=== PATIENT | female | born 1975 ===

== ENCOUNTER 2020-08-28 13:35 | Emergency (ER) | payer MEDICAID, SELFPAY ==
[2020-08-28 14:26] VITALS: BP 175/98; PULSE 77; RESP 18; TEMP 36.9; O2SAT 100; BMI 31.8
[2020-08-28] MEDS: Lidocaine HCl 2 % MPF 5 ML VIAL SUBCUT (14:56)
--- NOTE | 2020-08-28 15:21 | ED_ITS ---
HPI - Dental/Oral General Chief complaint: Dental/Oral Stated complaint: facial swelling Time Seen by Provider: 08/28/20 14:31 Source: patient and court interpreter Mode of arrival: ambulatory Limitations: no limitations and language barrier History of Present Illness HPI Narrative: dental pain with swelling x several days. No fevers/chills or difficulty opening the mouth. MD Complaint: tooth pain Location: Tooth # Teeth map: 1. Swelling, fluctuance, tenderness Onset (ago): day(s) Duration: constant Severity: mild Relieving factors: nothing Exacerbating factors: nothing Context: history of dental caries Treatment prior to arrival: none Related Data Previous Rx's Medication Instructions Recorded clindamycin HCl [Cleocin HCl] 300 mg PO TID #21 cap 08/28/20 ibuprofen 600 mg PO Q8H PRN #14 tab 08/28/20 Allergies Allergy/AdvReac Type Severity Reaction Status Date / Time No Known Allergies Allergy Verified 08/28/20 14:28 [No Known Allergies*] Review of Systems Review of Systems: Yes all other systems are reviewed and are negative Constitutional: Constitutional: Reports no additional constitutional complaints, Denies body ache(s), Denies chills, Denies fever(s), Denies headache(s) and Denies weakness Eyes: Eyes: Reports no additional eye complaints and Denies change in vision ENT: Reports system reviewed and no additional complaints, except as documented, Reports dental pain, Denies dizziness, Denies headache(s), Denies nasal congestion, Denies nasal discharge and Denies neck pain Cardiovascular: Cardiovascular: Reports no additional cardiovascular complain ts, Denies chest pain, Denies leg edema and Denies dyspnea Respiratory: Respiratory: Reports no additional respiratory complaints, Denies cough and Denies dyspnea Gastrointestinal: Gastrointestinal: Reports no additional gastrointestinal complaints, Denies abdominal pain, Denies diarrhea, Denies nausea and Denies vomiting Genitourinary: Genitourinary: Reports no additional female genitourinary complaints and Denies urinary incontinence Musculoskeletal: Musculoskeletal: Reports no additional musculoskeletal complaints, Denies back pain, Denies arthralgias, Denies joint swelling, Denies neck pain, Denies numbness and Denies tingling Integumentary/Breasts: Skin/Breast: Reports system reviewed and no additional complaints, except as docu and Denies rash Neurologic: Reports system reviewed and no additional complaints, except as documented, Denies Abnormal speech present, Denies dizziness, Denies headache(s), Denies numbness, Denies tingling and Denies weakness PMFSH Past Medical History Attestation statement: The following information was validated with the patient. Source: old records reviewed and nursing notes reviewed Social History Social History Advance Directives: No Advance Directives Information Provided: No Physical Exam Vital Signs: Vital Signs: Last Vital Signs Temp 98.5 F 08/28/20 14:26 Pulse 77 08/28/20 14:26 Resp 18 08/28/20 14:26 BP 175/98 H 08/28/20 14:26 Pulse Ox 100 08/28/20 14:26 Body Mass Index 31.8 Const: General: cooperative, healthy appearing, comfortable and no acute distress Orientation/consciousness: patient oriented x3 Limitations: no limitations HENMT: Head: Yes normal to inspection Ears: hearing grossly normal bilaterally General nose exam: Normal external nose present Face and sinus: Yes normal facial exam Mouth: Normal oral and palatal mucosa present Teeth image: 1. Swelling, tenderness, induration and fluctuance Throat: Yes posterior oropharynx normal Eyes: General: appearance normal, both eyes and all related structures Pupils: Equal, round and reactive pupils present Neck: Neck: Yes normal visual inspection Chest: Chest palpation & inspection: normal inspection of the chest Resp: Effort & Inspection: normal respiratory effort Auscultation: clear to auscultation bilaterally Cardio: Rate: regular rate Rhythm: regular rhythm Peripheral pulses: Peripheral pulses 2+ throughout GI: Inspection: Yes normal to inspection Palpation (GI): Soft to palpation and nontender Auscultation: normal bowel sounds Back/Spine/Pelvis: Thoracic/Lumbar Spine: thoracic and lumbar spine normal to inspection Skin: General skin exam: no rashes or lesions noted Neuro: General: patient oriented x3, no focal motor deficits and normal sensation to monofilament Cranial nerves: Yes Equal, round and reactive pupils present Cognition (Neuro): normal cognition Speech: No Abnormal speech present Gait exam (Neuro): Normal gait present Motor exam (neuro): 5/5 motor strength present throughout Extrem: General: Yes normal to inspection Course Course Course Narrative: Dental pain times several days with upper gum swelling and tenderness with fluctuance. Plan for I&D of abscess. Sending patient home with oral antibiotics and dental follow-up. Reviewed worrisome signs and symptoms and when to return to the emergency department. Comfortable discharge home. Procedures Abscess I/D Site: oral Side (if applicable): left Local Anesthetic: lidocaine 1% Technique: incised with blade Sent for culture/gram staining?: No Irrigation: No Packing used?: none Discharge Plan Discharge Clinical Impression: Dental abscess Patient Disposition: Home, Self-Care Instructions: Dental Abscess (ED) Additional Instructions: Warm compresses several times today Salt water gargles follow-up with your dentist Prescriptions: New clindamycin HCl [Cleocin HCl] 300 mg capsule 300 mg PO TID Qty: 21 RF: 0 ibuprofen 600 mg tablet 600 mg PO Q8H PRN (Reason: pain) Qty: 14 RF: 0 Interventions: ED Discharge Assessment Last Done: 08/28/20 15:04 Discharge Date/Time: 08/28/20 15:06 Print Language: Mohawk
== END 2020-08-28 15:06 | disposition home or self-care (01) ==
PROVIDERS: Emergency Provider Emergency Medicine Emergency Medical Services; PCP Family Medicine
DX: K04.7 Periapical abscess without sinus (principal); K08.89 Other specified disorders of teeth and supporting structures
CPT/HCPCS: 41800; 99283; 99284

== ENCOUNTER 2021-03-18 11:07 | Outpatient (REF) | payer MEDICAID, SELFPAY ==
--- NOTE | ~2021-03-18 | MR_ITS ---
EXAMINATION: MR BREAST WITHOUT AND WITH CONTRAST, BILATERAL CLINICAL INFORMATION: 45-year-old for high-risk screening, positive family history of breast cancer of mother in 60s, prior benign biopsy left breast. COMPARISON: MRI of 10/20/2017 and 02/11/2016. TECHNIQUE: Imaging was performed with a dedicated breast coil. Prior to the administration of contrast, bilateral axial T1 and bilateral axial T2 weighted sequences were obtained. After the uneventful administration of?8.5 mL of Gadavist, dynamic contrast-enhanced VIBRANT series through the breasts in the axial plane were performed. Subtracted images were performed and reviewed. A delayed sagittal sequence through both breasts was acquired. Additionally, CAD post-processing, including maximum intensity projections, 3-D reconstructions and kinetic analysis, were performed an independent workstation and reviewed by the interpreting radiologist is a portion of this exam. FINDINGS: The patient's fibroglandular tissue demonstrates significant background enhancement. LEFT BREAST: There is a susceptibility artifact in the 3 o'clock position. There is no associated enhancement. There is significant background enhancement which decreases the sensitivity of this examination. There are no new areas of mass or non-mass enhancements suspicious of malignancy. There are no secondary signs of malignancy. Again noted are multiple oval T2 bright masses consistent with cysts. Multiple contiguous cysts are noted in the 3-4 o'clock position measuring 3.6 x 1.4 cm in overall dimension. There is another cyst noted in the 1 o'clock position measuring 1.2 cm. There are no additional findings on kinetic curve analysis. RIGHT BREAST: Similar to the contralateral breast, there is significant background enhancement which decreases the overall sensitivity of this examination. There are no areas of mass or non-mass enhancement suspicious of malignancy and no secondary signs of malignancy. There are multiple T2 bright masses consistent with cysts. The largest is in the 11 o'clock position measuring 1.2 cm. There are no additional findings on kinetic curve analysis. There is no suspicious internal mammary chain or axillary adenopathy. Limited views of the chest and abdomen are unremarkable. MR/MR breast BI wo/w con IMPRESSION: Bilateral breast cysts. No MR findings suspicious of malignancy. ASSESSMENT: LEFT BREAST: BI-RADS 2, benign. RIGHT BREAST: BI-RADS 2, benign. RECOMMENDATIONS: Routine mammographic imaging as per most recent study and MRI as per high-risk protocol.
== END 2021-03-18 11:08 | disposition home or self-care (01) ==
LOC: HO.MRI 11:07
PROVIDERS: PCP Family Medicine; Visit Provider Family Medicine
DX: Z91.89 Other specified personal risk factors, not elsewhere classified (principal); Z80.3 Family history of malignant neoplasm of breast
CPT/HCPCS: 77049; A9585

== ENCOUNTER 2021-04-24 16:05 | Outpatient (REF) | payer MEDICAID, SELFPAY ==
--- NOTE | ~2021-04-24 | MM_ITS ---
EXAMINATION: MM SCREENING DIGITAL BREAST TOMOSYNTHESIS, BILATERAL CLINICAL INFORMATION: Screening. Asymptomatic. The lifetime risk of breast cancer based on the Tyrer-Cuzick Model is 22.2%. Additional annual screening with breast MRI may be of benefit in women with a Score of 20% or greater. COMPARISON: Mammography: MRI of March 18, 2021 and mammography from May 03, 2020 and dating back to January 03, 2015 TECHNIQUE: Digital breast tomosynthesis is performed in both the craniocaudal and mediolateral oblique views along with computer-aided detection (CAD). Synthesized 2D images are generated from the tomosynthesis. FINDINGS: The breasts are extremely dense, which lowers the sensitivity of mammography (ACR BI-RADS breast composition Category d). No suspicious grouping of microcalcifications identified. There are again noted to be a few well-circumscribed densities bilaterally similar to prior findings on recent MRI as well as previous breast ultrasound. MM/MM tomosynthesis screening BI IMPRESSION: There are no significant changes from prior study. Bilateral breast cysts. ASSESSMENT: BI-RADS 2: Benign RECOMMENDATION: Routine annual mammography screening. This patient's information was entered into a reminder system with a target due date for their next mammogram.
== END 2021-04-24 16:06 | disposition home or self-care (01) ==
LOC: HO.MAMMO 16:05
PROVIDERS: Visit Provider Family Medicine
DX: Z12.31 Encounter for screening mammogram for malignant neoplasm of breast (principal)
CPT/HCPCS: 77063; 77067

== ENCOUNTER 2022-07-17 14:49 | Outpatient (REF) | payer MEDICAID, SELFPAY ==
--- NOTE | ~2022-07-17 | MM_ITS ---
EXAMINATION: MM SCREENING DIGITAL BREAST TOMOSYNTHESIS, BILATERAL CLINICAL INFORMATION: Screening. Asymptomatic. Family history breast cancer, mother. The lifetime risk of breast cancer based on the Tyrer-Cuzick Model is 19%. COMPARISON: Mammography: 04/24/2021, 05/03/2020, 04/28/2019; MR breasts 03/18/2021. TECHNIQUE: Digital breast tomosynthesis is performed in both the craniocaudal and mediolateral oblique views along with computer-aided detection (CAD). Synthesized 2D images are generated from the tomosynthesis. Additional exaggerated left CC view is provided. FINDINGS: The breasts are heterogeneously dense, which may obscure small masses (ACR BI-RADS breast composition Category c). There are no significant masses, abnormal calcifications, or other abnormalities. There is a biopsy clip marker again noted upper outer quadrant left breast. No developing density. No architectural abnormality. The axilla are unremarkable. MM/MM tomosynthesis screening BI IMPRESSION: No mammographic evidence of malignancy. ASSESSMENT: BI-RADS 1: Negative RECOMMENDATION: Routine annual mammography screening. This patient's information was entered into a reminder system with a target due date for their next mammogram.
== END 2022-07-17 14:50 | disposition home or self-care (01) ==
LOC: HO.MAMMO 14:49
PROVIDERS: Visit Provider Family Medicine
DX: Z12.31 Encounter for screening mammogram for malignant neoplasm of breast (principal)
CPT/HCPCS: 77063; 77067

== ENCOUNTER → 2023-01-20 14:02 | Outpatient (BNVA) | payer MEDICAID, SELFPAY | PROVIDERS: PCP Family Medicine; Visit Provider Obstetrics & Gynecology ==

== ENCOUNTER 2023-03-18 15:25 | Outpatient (AMB) | payer MEDICAID, SELFPAY ==
--- NOTE | 2023-03-18 15:42 | A.OFFVIS_ITS ---
Intake Vital Signs 03/18/23 15:45 Height 5 ft 2 in Weight 181 lb BMI 33.1 BP 122/83 Blood Pressure Location Lt brachial Position Sitting Pulse 94 Intake Visit Reasons: Family history of malignant neoplasm of breast Intake Note: This patient presents for an assessment for possible genetic testing, family history of malignant neoplasm of breast. Patient denies breast complaints at this time. Dcs Engineer Required: Yes Dcs Engineer Language: Federal Agent Name: Guy Information Interpreted: non-clinical & clinical Accompanied by: Self / Same As Patient Allergies Seasonal Allergies Allergy (Mild, Verified 03/18/23 15:46) Runny Nose Medication List - Last Reconciled 03/18/23 by Christian Matt MD albuterol sulfate 90 mcg/actuation (Ventolin HFA) 2 puffs inhalation Q4H PRN chlorthalidone 25 mg PO DAILY ibuprofen 600 mg PO Q8H PRN levothyroxine 50 mcg PO DAILY montelukast 10 mg PO QPM HPI Family history of malignant neoplasm of breast HPI Details 47-year-old female referred because of family history of breast cancer. The patient says that her mother was diagnosed with breast cancer after the age of 60. She is uncertain but she says that her mother may have had surgery and chemotherapy. She does not have the details of this however The patient otherwise denies any palpable breast masses. She says she undergoes mammograms every year. Her menarche was at age of 12. Her 1st was age of 27. She had 3 pregnancies. She still has her periods. [facility] Medical History (Updated 03/18/23 @ 16:02 by Christian Matt MD) Asthma Thyroid disease Surgical History H/O LEEP Family History Mother Breast cancer Social History Alcohol intake: never Patient Tobacco Use Status: Never used Tobacco Female Reproductive History Menstrual Age of Menarche: 10 Date of last menstrual period: 03/01/23 Total pregnancies: 3 Review of Systems Const Denies chills and Denies fever(s) Card Denies chest pain, Denies dyspnea and Denies dyspnea on exertion Resp Denies cough, Denies dyspnea and Denies dyspnea on exertion GI Denies hematochezia and Denies change in bowel habits Denies hematuria Musc Denies back pain and Denies limited range of motion Neuro Denies focal weakness and Denies convulsions Psych Denies depression and Denies mood swings Physical Exam Vital Signs: Last Vital Signs Pulse 94 03/18/23 15:45 BP 122/83 03/18/23 15:45 BMI result Body Mass Index 33.1 Const General: comfortable and no acute distress Orientation/consciousness: patient oriented x3 Neck Neck: Yes no lymphadenopathy Chest Other: No palpable breast masses, no nipple or skin changes, no axillary lymphadenopathy Resp Auscultation: clear to auscultation bilaterally Cardio Rhythm: regular rhythm GI Palpation (GI): Soft to palpation, nontender and no guarding Neuro General: patient oriented x3 Assessment & Plan Assessment & Plan (1) Family history of breast cancer: Code(s): Z80.3 - Family history of malignant neoplasm of breast Plan: Physical exam does not reveal any palpable mass masses or adenopathy. She states her her mother was diagnosed to have breast cancer after the age of 60 so she may not qualify for genetic testing I did emphasize to the patient that she should continue to undergo yearly screening mammograms. She should also breast soft examination every month. I told her that if she notices any changes or any breast masses, she should come back to the office to be re-evaluated. Coding Level of Care Code Est Pt Level 3 (11057) Diagnoses Family history of breast cancer Z80.3
[2023-03-18 15:45] VITALS: BP 122/83; PULSE 94; BMI 33.1
== END 2023-03-18 16:00 ==
PROVIDERS: Visit Provider Surgery
DX: Z80.3 Family history of malignant neoplasm of breast (principal)
CPT/HCPCS: 99213

== ENCOUNTER → 2023-03-18 15:25 | Outpatient (BNVA) | payer MEDICAID, SELFPAY | PROVIDERS: Visit Provider Surgery | DX: Z91.89 Other specified personal risk factors, not elsewhere classified (principal); Z80.3 Family history of malignant neoplasm of breast | CPT/HCPCS: 99212 ==

== ENCOUNTER → 2023-10-11 14:00 | Outpatient (BNV) | payer MEDICAID, SELFPAY | PROVIDERS: PCP Family Medicine; Visit Provider Radiology Diagnostic Radiology | DX: Z12.31 Encounter for screening mammogram for malignant neoplasm of breast (principal) | CPT/HCPCS: 77063; 77067 ==

== ENCOUNTER 2023-10-11 14:07 | Outpatient (REF) | payer MEDICAID, SELFPAY ==
--- NOTE | ~2023-10-11 | MM_ITS ---
EXAMINATION: MM SCREENING DIGITAL BREAST TOMOSYNTHESIS, BILATERAL CLINICAL INFORMATION: Screening. Asymptomatic. COMPARISON: Mammography: This study is compared with prior exams dating back to 2021. TECHNIQUE: Digital breast tomosynthesis is performed in both the craniocaudal and mediolateral oblique views along with computer-aided detection (CAD). Synthesized 2D images are generated from the tomosynthesis. FINDINGS: The breasts are heterogeneously dense, which may obscure small masses (ACR BI-RADS breast composition Category c). There are no significant masses, abnormal calcifications, or other abnormalities. There is a tissue marker in the upper outer quadrant of the left breast from prior benign percutaneous biopsy. MM/MM tomosynthesis screening BI IMPRESSION: No mammographic evidence of malignancy. ASSESSMENT: BI-RADS BI-RADS 2 - Benign Findings RECOMMENDATION: Routine annual mammography screening. 1 year F/U This examination should not preclude the clinical evaluation of a suspicious palpable abnormality. This patient's information was entered into a reminder system with a target due date for their next mammogram.
== END 2023-10-11 14:08 | disposition home or self-care (01) ==
LOC: HO.MAMMO 14:07
PROVIDERS: PCP Family Medicine; Visit Provider Family Medicine
DX: Z12.31 Encounter for screening mammogram for malignant neoplasm of breast (principal)
CPT/HCPCS: 77063; 77067

== ENCOUNTER 2023-11-19 14:48 | Outpatient (REF) | payer MEDICAID, SELFPAY ==
[2023-11-19 16:41] LABS: Alanine Aminotransferase 19 U/L (0-31); Alkaline Phosphatase 94 U/L (39-117); Anion Gap 12 (12-20); Aspartate Amino Transferase 21 U/L (5-31); Bilirubin Direct 0.1 mg/dL (0.0-0.5); Bilirubin Total 0.5 mg/dL (0.0-1.0); Blood Urea Nitrogen 17 mg/dL (9-16); Calcium 9.3 mg/dL (8.4-10.2); Carbon Dioxide 26 mmol/L (22-29); Chloride 107 mmol/L (96-108); Cholesterol 246 mg/dL (<200); Estimated Glomerular Filt Rate > 60; Glucose Random 90 mg/dL (60-115); HDL Cholesterol 43 mg/dL (>40); LDL Cholesterol Calculated 172 mg/dL (<100); Potassium 4.1 mmol/L (3.3-5.1); Sodium 141 mmol/L (135-145); Total Protein 7.8 g/dL (6.5-8.0); Triglycerides 156 mg/dL (<150)
[2023-11-19 16:47] LABS: Thyroid Stimulating Hormone 2.68 uIU/mL (0.32-4.0)
[2023-11-22 04:02] LABS: Syphilis Screen Nonreactive (Nonreactive)
[2023-11-22 04:31] LABS: HIV AB/AG Nonreactive (Nonreactive); HIV Num 1 0.06 S/CO (0.00-0.99); ~Hepatitis C Antibody Nonreactive (Nonreactive)
== END 2023-11-19 14:49 | disposition home or self-care (01) ==
LOC: HO.HHCL 14:48
PROVIDERS: Visit Provider Family Medicine
DX: I10 Essential (primary) hypertension (principal); E03.8 Other specified hypothyroidism; E06.3 Autoimmune thyroiditis; E78.5 Hyperlipidemia, unspecified; Z79.899 Other long term (current) drug therapy; Z11.3 Encounter for screening for infections with a predominantly sexual mode of transmission; Z11.59 Encounter for screening for other viral diseases
CPT/HCPCS: 36415; 80048; 80061; 80076; 84443; 86780; 86803; 87389

== ENCOUNTER 2024-10-17 15:42 | Outpatient (REF) | payer MEDICAID, SELFPAY ==
--- OUTSIDE RECORDS SUMMARY | 2024-10-17 16:32 | XMS_ITS | Encounter Summary ---
Author Organization [employer] [facility] Address [address] [place] [address] 7 [place] [address] Care Team Providers Care Mri Ct Tech Name Role Phone Stephanie Hernandez MD Primary Care Provider [phone] Austin Crenshaw PharmD Unavailable [phone] Encounter Details Date Type Department Care Team (Latest Contact Info) Description 01/13/2019 Abstract [facility] CONVERSIONS Dental, Provider, DDS Social History Tobacco Use Types Packs/Day Years Used Date Smoking Tobacco: Never Assessed Comments Unknown Sex and Gender Information Value Date Recorded Sex Assigned at Female 06/29/2022 10:21 AM EDT Legal Sex Female 10:21 AM EDT Gender Identity Female 06/29/2022 10:21 AM EDT Sexual Orientation Straight 06/29/2022 10 :21 AM EDT documented as of this encounter Plan of Treatment Upcoming Encounters Date Type Department Care Team (Late st Contact Info) Description 10/30/2024 3:15 PM EST Office Visit [facility] OPTOMETRY [address] [place] [address] Alesha Ch, OD [address] [place] [address] 11/23/2024 10:30 AM EDT Office Visit [facility] MEDICINE [address] [place] [address] Stephanie Hernandez MD [address] [place] [address] documented as of this encounter Visit Diagnoses Not on filedocumented in this encounter Care Teams Mri Ct Tech Relationship Specialty Start Date End Date Stephanie Hernandez MD [address] [place], [place] [phone] PCP - General Family Medicine 08/30/18 Austin Crenshaw, BijanD [address] [place], [place] [phone] Pharmacist Internal Medicine 11/06/22 documented as of this encounter
--- OUTSIDE RECORDS SUMMARY | 2024-10-17 16:32 | XMS_ITS | Encounter Summary ---
Author Organization [employer] Address [address] [place] [address] 7 [place] [address] Care Team Providers Care Buyer Broker Name Role Phone Stephanie Hernandez MD Primary Care Provider [phone] Austin Crenshaw PharmD Unavailable [phone] Reason for Visit * Reason Onset Date Comments Med Refill 09/23/2023 Encounter Details Date Type Department Care Team (Late st Contact Info) Description 09/23/2023 Refill [facility] MEDICINE [address] [place], [place] [phone] Stephanie Hernandez MD [address] [place], [place] [phone] Social History Tobacco Use Types Packs/Day Years Used Date Smoking Tobacco: Never Passive Smoke Exposure: Never Smokeless Tobacco: Never Depression Answer Date Recorded Patient Health Questionnaire-9 Score 0 08/25/2022 Housing Stability Answer Date Recorded What is your housing situation today? I have guevara harley 06/18/[address] you li ve. Do you have problems with any of the following? None of the above 06/18/2023 Food Insecurity Answer Date Recorded Within the past 12 months, y ou worried that your food would run out before you got money to buy more: Never True 06/18/2023 Within the past 12 months,th e food you bought just didn't last and you didn't have enough money to get more: Never True Transportation Answer Date Recorded In the past 12 months, has l ack of transportation kept you from medical appts, meetings, work or from getting things needed for daily living? No 06/18/2023 Utilities Answer Date Recorded In the past 12 months, has t he electric, gas, oil or water company threatened to shut off services in your home? No 06/18/2023 Depression Answer Date Recorded Patient Health Questionnaire-2 Score 0 08/25/2022 Comments Unknown Sex and Gender Information Value [...] Description 10/30/2024 3:15 PM EST Office Visit [facility] OPTOMETRY [address] [place], [place] [phone] Tarka Alesha, OD [address] [place] [address] 11/23/2024 10:30 AM EDT Office Visit [facility] MEDICINE [address] [place] [address] Stephanie Hernandez MD [address] [place] [phone] documented as of this encounter Goals Goal Patient Goal Type Associated Problems Recent Progress Patient-Stated? Author Blood Pressure < 140/90 Blood Pressure 124/88( 024 3:15 PM EST) No Austin Crenshaw, Reginaldo documented as of this encounter Visit Diagnoses Not on filedocumented in this encounter Additional Health Concerns Assessment Noted Time PHQ-9 Depression Total Score: 0 08/25/20 22 2:27 PM EST documented as of this encounter Care Teams Buyer Broker Relationship Specialty Start Date End Date Stephanie Hernandez MD [address] [place] [phone] PCP - General Family Medicine 08/30/18 Austin Crenshaw PharmD [address] [place] [phone] Pharmacist Internal Medicine 11/06/22 documented as of this encounter
--- OUTSIDE RECORDS SUMMARY | 2024-10-17 16:32 | XMS_ITS | Encounter Summary ---
Author Organization [employer] Address [address] [place] [address] 7 [place] [address] Care Team Providers Care Limb Driver Name Role Phone Stephanie Hernandez MD Primary Care Provider [phone] Austin Crenshaw PharmD Unavailable [phone] Encounter Details Date Type Department Care Team (Late st Contact Info) Description 12/24/2023 Orders Only [facility] MEDICINE [address] [place], [place] [phone] Stephanie Hernandez MD [address] [place] [address] Social History Tobacco Use Types Packs/Day Years [...] Description 10/30/2024 3:15 PM EST Office Visit [facility] OPTOMETRY [address] [place], [place] [phone] TarAlesha ewing, OD [address] [place] [address] 11/23/2024 10:30 AM EDT Office Visit [facility] MEDICINE [address] [place] [address] Stephanie Hernandez MD [address] [place] [address] documented as of this encounter Goals Goal Patient Goal Type Associated Problems Recent Progress Patient-Stated? Author Blood Pressure < 140/90 Blood Pressure 124/88( 024 3:15 PM EST) No Austin Crenshaw PharmD documented as of this encounter Visit Diagnoses Not on filedocumented in this encounter Additional Health Concerns Assessment Noted Time PHQ-9 Depression Total Score: 0 08/25/20 22 2:27 PM EST documented as of this encounter Care Teams Limb Driver Relationship Specialty Start Date End Date Stephanie Hernandez MD [address] [place] [phone] PCP - General Family Medicine 08/30/18 Austin Crenshaw, BijanD [address] [place] [id number] Pharmacist Internal Medicine 11/06/22 documented as of this encounter
--- OUTSIDE RECORDS SUMMARY | 2024-10-17 16:32 | XMS_ITS | Encounter Summary ---
Author Organization [employer] Address [address] [place] [address] [address] [place] [address] Care Team Providers Care Master Deputy Sheriff Court Security Name Role Phone Stephanie Hernandez MD Primary Care Provider [phone] Austin Crenshaw PharmD Unavailable [phone] Reason for Visit * Reason Onset Date Comments Appointment Request 02/22/2024 Encounter Details Date Type Department Care Team (Late st Contact Info) Description 02/22/2024 Telephone [facility] MEDICINE [address] [place], [place] [phone] Stephanie Hernandze MD [address] [place], [place] [phone] Appointment Request Social History Tobacco Use Types Packs/Day Years [...] AM EDT documented as of this encounter Miscellaneous Notes * Telephone Encounter - Claus Haley - 02/22/2024 8:33 AM EDT Tc from patient trying to reschedule physical from 01/05 however there was nothing available at the moment documented in this encounter Plan of Treatment Upcoming Encounters Date Type Department Care Team (Late st Contact Info) Description 10/30/2024 3:15 PM EST Office Visit [facility] OPTOMETRY [address] [place] [address] Alesha Ch, OD [address] [place] [address] 11/23/2024 10:30 AM EDT Office Visit [facility] MEDICINE [address] [place] [address] Stephanie Hernandez MD [address] [place] [address] documented as of this encounter Goals Goal Patient Goal Type Associated Problems Recent Progress Patient-Stated? Author Blood Pressure < 140/90 Blood Pressure 124/88( 024 3:15 PM EST) No Austin Crenshaw, PharmD documented as of this encounter Visit Diagnoses Not on filedocumented in this encounter Additional Health Concerns Assessment Noted Time PHQ-9 Depression Total Score: 0 08/25/20 22 2:27 PM EST documented as of this encounter Care Teams Master Deputy Sheriff Court Security Relationship Specialty Start Date End Date Stephanie Hernandez MD [address] [place] [address] PCP - General Family Medicine 08/30/18 Austin Crenshaw, BijanD [address] [place] [address] Pharmacist Internal Medicine 11/06/22 documented as of this encounter
--- OUTSIDE RECORDS SUMMARY | 2024-10-17 16:32 | XMS_ITS | Encounter Summary ---
Author Organization [employer] Address [address] [place] [address] 7 [place] [address] Care Team Providers Care Forward Air Controller/Air Officer Name Role Phone Stephanie Hernandez MD Primary Care Provider [phone] Austin Crenshaw PharmD Unavailable [phone] Encounter Details Date Type Department Care Team (Late st Contact Info) Description 08/26/2023 Orders Only [facility] MEDICINE [address] [place], [place] [phone] Stephanie Hernandez MD [address] [place] [address] Social History Tobacco Use Types Packs/Day Years [...] Description 10/30/2024 3:15 PM EST Office Visit [facility] OPTOMETRY [address] [place], [place] [phone] TarAlesha ewing, OD [address] [place] [address] 11/23/2024 10:30 AM EDT Office Visit [facility] MEDICINE [address] [place] [address] Stephanie Hernandez MD [address] [place] [address] documented as of this encounter Goals Goal [...] documented as of this encounter Care Teams Forward Air Controller/Air Officer Relationship Specialty Start Date End Date Stephanie Hernandez MD [address] [place] [phone] PCP - General Family Medicine 08/30/18 Austin Crenshaw, BijanD [address] [place] [phone] Pharmacist Internal Medicine 11/06/22 documented as of this encounter
--- OUTSIDE RECORDS SUMMARY | 2024-10-17 16:32 | XMS_ITS | Clinical Summary ---
Author Organization [employer] Address [address] [place] [address] 7 [place] [address] Care Team Providers Care Salesperson Men'S Furnishings Name Role Phone Stephanie Hernandez MD Primary Care Provider [phone] Austin Crenshaw PharmD Unavailable Allergies Active Allergy Reactions Criticality Noted Date Comments [place] Oil Medium 08/24/2022 Medications albuterol 108 (90 Base) MCG/ACT inhaler inhale 2 puff by inhalation route every 4 hours as needed for difficulty breathing, 4 times / day 2 Active EPINEPHrine (Epipen) 0.3 MG/0.3ML injection syringe Inject 0.3 mL into the shoulder, thigh, or buttocks. Active montelukast (Singulair) 10 MG tablet TAKE ONE TABLET BY MOUTH EVERY DAY IN THE EVENING 90 tablet 1 3 Active levothyroxine (Synthroid, Levoxyl) 50 MCG tablet TAKE ONE TABLET DAILY 90 tablet 3 3 Active chlorthalidone (Hygroton) 25 MG tablet TAKE ONE TABLET DAILY 90 tablet 3 3 Active emtricitabine-t enofovir DF (Truvada) 200-300 MG tablet One tablet by mouth daily 90 tablet 4 Active Active Problems Problem Noted Date Diagnosed Date Varicose veins of both lower extremities 022 Asthma 08/28/2022 Hypertension 08/24/2022 Assessment & Plan (09/24/2023 9:01 AM EST): BP mild elevated today -not Took her BP med today-advised to be compliant and to f up w PCP Assessment & Plan (08/24/2022 3:10 PM EST): -Goal BP <140/90 per JNC-8 and <130/80 per ACC/AHA guideline (Tx threshold 140/90) -continue chlorthalidone 25 mg daily -continue working on life modifications -continue SMBP Follow - up in 6 mo or sooner if any problem arises History of abnormal cervical Papanicolaou smear 08/24/2022 Assessment & Plan (08/24/2022 3:21 PM EST): - RUSTY-I in Sep 2011, ASCUS in February 2013, RUSTY-II and Colpo in Jun 2013,s/p LEEP in August 2013, Negative in February 2014, Negative in October 2014. - 02/11/16 ASCUS with negative high-risk HPV. - 03/30/17 NILM with negative high-risk HPV - EMB for menorrhagia on 07/18/18 - normal - Pelvic US 08/04/18: stable R-fundal myometrial fibroid, 10mm likely L-ovarian corpus luteum, and normal endometrium. -06/06/19 NILM with negative high-risk HPV Family history of breast cancer in mother 2021 Assessment & Plan (08/24/2022 3:22 PM EST): -Most recent mammography on 07/17/22 BI-RADS 1 -Most recent MRI on 03/18/21 BI-RADS 2, q2yr -Mother Dx breast CA -Seen by Breast surgeon Dr. Thomas and Oncologist Dr Conway -Dr Conway recommended that she take chemoprophylaxis with tamoxifen to lower the risk of breast cancer. 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 08/24/2022 Assessment & Plan (08/24/2022 3:24 PM EST): -Avoidance -Carry Epi-pen Allergic rhinitis 08/24/2022 Assessment & Plan (08/24/2022 3:26 PM EST): Seen by allergy / hydrotechnical specialist Continue cetirizine Continue Singulair Continue Fluticasone nasal Continue Ketotifen for allergic conjunctivitis Treatment Hx: Previously on loratadine, but chanted to cetirizine due to ineffectiveness Prediabetes 08/24/2022 Assessment & Plan (08/24/2022 3:31 PM EST): -05/19/22 A1C 5.7% -Family Hx DM2 -Continue working on lifestyle modifications Dyslipidemia 08/24/2022 Assessment & Plan (08/24/2022 3:33 PM EST): -05/19/22 TC 225; TG 115; HDL 41; LDL 161 -Statin therapy is not indicated at this time -Continue working on lifestyle modifications 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 Gan of ENT in 2015 and fiberoptic laryngoscopy revealed a moderately large right true vocal fold polyp or cyst. Patient states she was not prepared to move forward with an intervention at that time -Pt was seen again in February [address] Gan because she was considering about getting it removed; she changed her mind again -Continue monitor -At least, it seems to be benign polyp -Rest voice sometimes Hypothyroidism due to Nilo's thyroiditis Assessment & Plan (08/24/2022 3:13 PM EST): -05/19/22 TSH 3.16 -Current replacement: levothyroxine 50 mcg daily -Adherence -possibly subclinical Recurrent genital herpes simplex 12/21/2014 Venous insufficiency of both lower extremities 0 12/20/2014 Assessment & Plan (08/28/2022 10:37 AM EST): -Hx venous ablation of right lower leg vein in October 2016 -DASH diet; elevated legs; compression stocking; comfortable shoes; home stretching exercise -wear comfortable shoes -wear compression stocking Resolved Problems Problem Noted Date Diagnosed Date Resolved Date Otitis externa 09/24/2023 01/06/2024 Assessment & Plan (09/24/2023 9:01 AM EST): Pt w mild otitis externa -ofloxacine otic px -tyelnol prn and NSAIDS as needed -alarm signs and symptoms discussed w pt Cervical intraepithelial neoplasia grade 2 2013 08/24/2022 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 08/24/2022 Encounters Date Type Department Care Team Description 08/07/2024 Telephone [facility] MEDICINE [address] [place] [address] Stephanie Hernandez MD No Show 08/04/2024 Travel 08/03/2024 Telephone [facility] MEDICINE [address] [place], [place] [phone] Mally Kulkarni MA chart prep from Last 3 Months Immunizations Name Administration Dates Next Due Hep A, Adult 01/03/2013,06/15/2011 Hep B, adult 2013,01/03/2013,06/15/2011 Influenza injectable quadriv alent IIV4 with preservative 06/13/2015 Influenza injectable quadriv alent preservative free 08/11/2016 Influenza, IIV3, injectable 07/17/2014, 1,08/08/2010 Influenza, Split (incl. rosalinda fied surface antigen) 2013,07/07/2012 Td (adult), 5 Lf tetanus tox oid, preservative free, adsorbed 01/11/2015 Tdap 08/08/2010 Family History Medical History Relation Name Comments Breast cancer Mother Relation Name Status Comments Mother Social History Tobacco Use Types Packs/Day Years Used Date Smoking Tobacco: Never Passive Smoke Exposure: Never Smokeless Tobacco: Never Tobacco Cessation:Counseling Given: Not Answered Depression Answer Date Recorded Patient Health Questionnaire-9 [...] Orientation Straight 06/29/2022 10 :21 AM EDT Last Filed Vital Signs Vital Sign Reading Time Taken Comments Blood Pressure 124/88 10/04/2023 3:15 PM EST Pulse 62 10/04/2023 3:15 PM EST Temperature 36.8 ??C (98.2 ??F) 09/23/2023 3:41 PM ES T Respiratory Rate 16 09/23/2023 3:41 PM EST Oxygen Saturation 98% 09/23/2023 3:41 PM EST Inhaled Oxygen Concentration - - Weight 83.5 kg (184 lb) 09/23/2023 3:41 PM EST Height 157.5 cm (5' 2 ) 09/23/2023 3:41 PM EST Body Mass Index 33.65 09/23/2023 3:41 PM EST Plan of Treatment Upcoming Encounters Date Type Department Care Team (Late st Contact Info) Description 10/30/2024 3:15 PM EST Office Visit [facility] OPTOMETRY [address] [place] [address] Alesha Ch, RAVIN [address] [place], [place] [phone] 11/23/2024 10:30 AM EDT Office Visit [facility] MEDICINE [address] [place] [address] Stephanie Hernandez MD [address] [place] [address] Health Maintenance Due Date Last Done Comments CT Colonography 1976 Colonoscopy 1976 Colorectal Cancer Screening 1976 Dental X-Ray: Full Mouth 1976 FIT DNA/Cologuard 1976 FIT 1976 FOBT 1976 Sigmoidoscopy 1976 Alcohol/Substance Use Screening 1988 Family Planning (PISQ) 1991 Pneumococcal Vaccine: Pediatrics (0 to 5 Years) and At-Risk Patients (6 to 49) Years) (1 of 2 - PCV) 1995 Dental Oral Exam 03/27/2015 09/26/2014 Dental Prophylaxis 03/27/2015 09/26/2014 Dental X-Ray: Bitewings 09/27/2015 09/26/2014 Diabetes: Hemoglobin A1C 01/28/2023 01/28/2022, 08/31 Depression Screening 08/25/2023 08/25/2022, 08/25/20 22 SDOH Screening 08/25/2023 08/25/2022 COVID-19 Vaccine ( season) 2024 Influenza Vaccine (#1) 2024 6, 06/13/2015, 07/17/2014, Additional history exists Cervical Cancer Screening 06/06/2024 HPV/Cotest 06/06/2024 06/06/2019 Pap Smear 06/06/2024 06/06/2019 Tobacco Screening 09/23/2024 09/23/2023 DTaP/Tdap/Td Vaccines (3 - Td or Tdap) 01/11/2025 01/11/2015, 08/08/2010 Mammogram 10/11/2025 10/11/2023, 06/30, 04/24/2021, Additional history exists Zoster Vaccines (1 of 2) 2026 Lipid Panel 11/18/2028 11/19/2023, 01/28/2022 RSV Patients and Patients Aged 60 years or older (1 - 1-dose 75+ series) 2051 Hepatitis A Vaccines Aged Out 01/03/2013, 06/15/20 11 No longer eligible based on patient's age to complete this topic Hepatitis B Vaccines Completed 2013, 01/03/2013, 06/15/2011 HIV Screening Completed 11/19/2023, 06/08/2021, 09/27/2019 Hepatitis C Screening Completed 11/19/2023 , 01/28/2022, 09/27/2019 HIB Vaccines Aged Out No longer eligi ble based on patient's age to complete this topic HPV Vaccines Aged Out No longer eligi ble based on patient's age to complete this topic IPV Vaccines Aged Out No longer eligi ble based on patient's age to complete this topic Meningococcal Vaccine Aged Out No bernardo iwona eligible based on patient's age to complete this topic RSV under 20 months Aged Out No longe r eligible based on patient's age to complete this topic Rotavirus Vaccines Aged Out No longer eligible based on patient's age to complete this topic Goals Goal Patient Goal Type Associated Problems Recent Progress Patient-Stated? Author Blood Pressure < 140/90 Blood Pressure 124/88( 024 3:15 PM EST) No Austin Crenshaw, BijanD Procedures Procedure Name Priority Date/Time Associated Diagnosis Comments HEPATITIS C AB W/REFL TO HCV RNA, QN, PCR Routine 11/19/2023 2:49 PM EDT On pre-exposure prophylaxis for HIV HIV 1/2 ANTIGEN/ANTIBODY, FOURTH GENERATION W/RFL Routine 11/19/2023 2:49 PM EDT On pre-exposure prophylaxis for HIV LIPID PANEL, STANDARD Routine 11/19/2023 2:49 PM EDT On pre-exposure prophylaxis for HIV BI MAMMOGRAM SCREENING TOMOSYNTHESIS BILATERAL Routine 10/11/2023 2:25 PM EST HEMOGLOBIN A1C Routine 01/28/2022 9:58 AM EDT HM PAP/HPV Routine 06/06/2019 PROPHYLAXIS - ADULT Routine 09/26/2014 1 2:00 AM EST BITEWINGS - 4 RADIOGRAPHIC IMAGES Routine 09/26/2014 12:00 AM EST PERIODIC ORAL EVALUATION - ESTABLISHED PATIENT Routine 09/26/2014 12:00 AM EST from Last 3 Months or Most Recently Relevant to Health Maintenance Results * Hepatitis C Antibody with Reflex to HCV, RNA, Quantitative, Real-Time PCR (11/19/2023 2:49 PM EDT) Pathologist [facility] Hepatitis C Antibody Nonreactive Nonreactive [facility] Comment:Antibodies to HCV no t detected; does not exclude early acuteHCV infection. 11/19/2023 2:49 PM EDT 11/19/2023 3:58 PM EDT us Stephanie Hernandez MD LAB BLOOD ORDERABLES Final Resul t Performing Organization Address [facility] Co de Phone Number [facility] [address] [place] [phone] * HIV-1/2 Antigen and Antibodies, Fourth Generation, with Reflexes (11/19/2023 2:49 PM EDT) Pathologist [facility] HIV AB/AG Nonreactive Nonreactive [facility] Comment:HIV-1 p24 Ag and/or HIV-1/HIV-2 Ab not detected.A test result that is nonreactive does not exclude thepossibility of exposure to or infection with HIV-1 and/orHIV-2. Nonreactive results in this assay for individualswith prior exposure to HIV-1 and/or HIV-2 may be due toantigen and antibody levels that are below the limit ofdetection of this assay.The [email or web address] HIV Ag/Ab Combo assay result andsupplemental assay results should be interpreted inconjunction with the patient's clinical presentation,history and other laboratory results. If the results areinconsistent with clinical evidence, additional testing issuggested to confirm the result. 11/19/2023 2:49 PM EDT 11/19/2023 3:58 PM EDT us Stephanie Hernandez MD LAB BLOOD ORDERABLES Final Resul t Performing Organization Address [facility]/ZIP Co de Phone Number [facility] [address] [place] [phone] * (ABNORMAL) Lipid Panel, Standard (11/19/2023 2:49 PM EDT) Triglycerides 156(H) <150 mg/dL [facility] Comment:Desirable Triglyceri de: less than 150 mg/dLBorderline High Triglyceride 150-199 mg/dLHigh Triglyceride: 200-499 mg/dLVery High Triglyceride: greater than or equal to 5OO mg/dL Cholesterol 246(H) <200 mg/dL [facility] Comment:Desirable Cholestero l: less than 200 mg/dLBorderline High Cholesterol: 200-239 mg/dLHigh Cholesterol: greater than 239 mg/dL LDL Cholesterol Calculated 172(H) <100 mg/dL [facility] Comment:Desirable LDL: less than 100 mg/dLNear Optimal/Above Optimal LDL: 110- 129 mg/dLBorderline High LDL: 130-159 mg/dLHigh LDL: 160-189 mg/dLVery High LDL: greater than or equal to 190 mg/dL HDL Cholesterol 43 >40 mg/dL [facility] Comment:Desirable HDL: great er than 40 mg/dL Note: This HDL assay may give artificially low results in patients with liver disease. 11/19/2023 2:49 PM EDT 11/19/2023 3:58 PM EDT us Stephanie Hernandez MD LAB BLOOD ORDERABLES Final Resul t [facility] [address] [place] [address] [phone] * BI Mammogram Screening Tomosynthesis Bilateral (10/11/2023 2:25 PM EST) Anatomical Region Laterality Modality Breast Bilateral Mammography 10/11/2023 2:25 PM EST Narrative 10/31/2023 11:54 AM EST ? [facility] ? [address] ?[place] [address] ? Mammography Report ? Signed ? Patient: Kayla Perez ?MR#: ?? [id number] ? : 1975 ?Acct:[id number] ? Age/Sex: 48 / F ?ADM Date: 02/12/24 ? Loc: HO.MAMMO ? Attending Dr: Stephanie Hernandez MD ? Ordering Physician: Stephanie Hernandez MD ?Results: 2Benign F ?? indings ? Date of Service: 10/11/23 ?Follow Up: 1 Year From Orig ?? inal Mammogram ? Procedure(s): MM tomosynthesis screening BI ?? Accession Number(s): [id number] ? cc: Stephanie Hernandez MD ? EXAMINATION: ?? MM SCREENING DIGITAL BREAST TOMOSYNTHESIS, BILATERAL ? CLINICAL INFORMATION: ? Screening. Asymptomatic. ? COMPARISON: ?? Mammography: This study is compared with prior exams dating back to ?? 2021. ? TECHNIQUE: ?? Digital breast tomosynthesis is performed in both the craniocaudal and ?? mediolateral oblique views along with computer-aided detection (CAD). ?? Synthesized 2D images are generated from the tomosynthesis. ? FINDINGS: ?? The breasts are heterogeneously dense, which may obscure small masses ?? (ACR BI-RADS breast composition Category c). ? There are no significant masses, abnormal calcifications, or other ?? abnormalities. ? There is a tissue marker in the upper outer quadrant of the left breast ?? from prior benign percutaneous biopsy. ? MM/MM tomosynthesis screening BI ?? IMPRESSION: ?? No mammographic evidence of malignancy. ? ASSESSMENT: ? BI-RADS BI-RADS 2 - Benign Findings ? RECOMMENDATION: ?? Routine annual mammography screening. ? 1 year F/U ? This examination should not preclude the clinical evaluation of a ?? suspicious palpable abnormality. ? This patient's information was entered into a reminder system with a ?? target due date for their next mammogram. ? Dictated By: ?Paris Dorsey MD ? Signed By: ?<Electronically signed by Paris Dorsey MD in OV> ? 10/31/231 ? DD/ 1425 ? TD/TT: ? Electric Motor Mechanic: ? Procedure Note Donotuseinterpreter, Image - [facility] [address] [place], [place] [address] Mammography Report Signed Patient: Kayla Perez JMR#: [id number] : 1975Acct:[id number] Age/Sex: 48 / FADM Date: 10/11/23 Loc: HO.MAMMO Attending Dr: Stephanie Hernandez MD Ordering Physician: Stephanie Hernandez MDResults: 2Benign F indings Date of Service: 10/11/23Follow Up: 1 Year From [facility] Mammogram Procedure(s): MM tomosynthesis screening BI Accession Number(s): [id number] cc: Stehpanie Hernandez MD EXAMINATION: MM SCREENING DIGITAL BREAST TOMOSYNTHESIS, BILATERAL CLINICAL INFORMATION: Screening. Asymptomatic. COMPARISON: Mammography: This study is compared with prior exams dating back to 2021. TECHNIQUE: Digital breast tomosynthesis is performed in both the craniocaudal and mediolateral oblique views along with computer-aided detection (CAD). Synthesized 2D images are generated from the tomosynthesis. FINDINGS: The breasts are heterogeneously dense, which may obscure small masses (ACR BI-RADS breast composition Category c). There are no significant masses, abnormal calcifications, or other abnormalities. There is a tissue marker in the upper outer quadrant of the left breast from prior benign percutaneous biopsy. MM/MM tomosynthesis screening BI IMPRESSION: No mammographic evidence of malignancy. ASSESSMENT: BI-RADS BI-RADS 2 - Benign Findings RECOMMENDATION: Routine annual mammography screening. 1 year F/U This examination should not preclude the clinical evaluation of a suspicious palpable abnormality. This patient's information was entered into a reminder system with a target due date for their next mammogram. Dictated By: Paris Dorsey MD Signed By: <Electronically signed by Paris Dorsey MD in OV> 10/31/23 1151 DD/ 1425 TD/TT: Electric Motor Mechanic: Stephanie Hernandez MD IMG BI PROCEDURES Edited Result - Final * (ABNORMAL) HEMOGLOBIN A1c (01/28/2022 9:58 AM EDT) Hemoglobin A1c 5.7(H) <5.7 % of total [facility] Comment: For someone without known diabetes, a hemoglobin ?? A1c value between 5.7% and 6.4% is consistent with prediabetes and should be confirmed with a ?? follow-up test. ?? For someone with known diabetes, a value <7% indicates that their diabetes is well controlled. A1c targets should be individualized based on duration of diabetes, age, comorbid conditions, and other considerations. ?? This assay result is consistent with an increased risk of diabetes. ?? Currently, no consensus exists regarding use of hemoglobin A1c for diagnosis of diabetes for children. ?? 01/28/2022 9:58 AM EDT Stephanie Hernandez MD LAB BLOOD ORDERABLES Final Resul t [facility] [address] * Hm Pap Smear (06/06/2019) Pap Negative for intraephithelial lesion or malignancy Negative for intraephithelial lesion or malignancy, Other HPV Undetected Undetected, Indeterminate, Quantitative, Not Detected Historical Provider HEALTH MAINTENANCE Final Result from Last 3 Months or Most Recently Relevant to Health Maintenance Insurance [place] [employer] [facility] [employer] STAND ADULT Care Teams Salesperson [employer] Furnishings Relationship Specialty Start Date End Date Stephanie Hernandez MD [address] [place], [place] [phone] PCP - General Family Medicine 08/30/18 Austin Crenshaw, PharmD [address] [place], [place] [phone] Pharmacist Internal Medicine 11/06/22
--- OUTSIDE RECORDS SUMMARY | 2024-10-17 16:32 | XMS_ITS | Encounter Summary ---
Author Organization [employer] [facility] Address [address] [place] [address] 7 [place] [address] Care Team Providers Care Linoleum Tile Layer Name Role Phone Stephanie Hernandez MD Primary Care Provider [phone] Austin Crenshaw PharmD Unavailable [phone] Encounter Details Date Type Department Care Team ([facility] Contact Info) Description 08/14/2022 Orders Only [facility] MEDICINE [address] [place] [phone] Gayle Sparks, RN Social History Tobacco Use Types Packs/Day Years Used Date Smoking Tobacco: Never Assessed Comments Unknown Sex and Gender Information Value Date Recorded Sex Assigned at Female 06/29/2022 10:21 AM EDT Legal Sex Female 10:21 AM EDT Gender Identity Female 06/29/2022 10:21 AM EDT Sexual Orientation Straight 06/29/2022 10 :21 AM EDT COVID-19 Exposure Response Date Recorded In the last 10 days, have yo u been in contact with someone who was confirmed or suspected to have Coronavirus/COVID-19? Unable to assess 08/10/2022 3:27 PM EST documented as of this encounter Plan of Treatment Upcoming Encounters Date Type Department Care Team ([facility] Contact Info) Description 10/30/2024 3:15 PM EST Office Visit [facility] OPTOMETRY [address] [place] [address] Alesha Ch, OD [address] [place] [address] 11/23/2024 10:30 AM EDT Office Visit [facility] MEDICINE [address] [place] [address] Stephanie Hernandez MD [address] [place] [address] documented as of this encounter Visit Diagnoses Not on filedocumented in this encounter Care Teams Linoleum Tile Layer Relationship Specialty Start Date End Date Stephanie Hernandez MD [address] [place] [phone] PCP - General Family Medicine 08/30/18 Austin Crenshaw, BijanD [address] [place] [phone] Pharmacist Internal Medicine 11/06/22 documented as of this encounter
== END 2024-10-17 15:43 | disposition home or self-care (01) ==
LOC: HO.MAMMO 15:42
PROVIDERS: PCP Family Medicine; Visit Provider Family Medicine
DX: Z12.31 Encounter for screening mammogram for malignant neoplasm of breast (principal)
CPT/HCPCS: 77063; 77067

== ENCOUNTER → 2024-10-17 15:45 | Outpatient (BNV) | payer MEDICAID, SELFPAY | PROVIDERS: PCP Family Medicine; Visit Provider Internal Medicine | DX: Z12.31 Encounter for screening mammogram for malignant neoplasm of breast (principal) | CPT/HCPCS: 77063; 77067 ==

== ENCOUNTER 2024-11-23 11:43 | Outpatient (REF) | payer MEDICAID, SELFPAY ==
[2024-11-23 13:39] LABS: Estimated Average Glucose 117 mg/dL; Hemoglobin A1c % 5.7 % (<6.0); Total Hemoglobin (HGBA1C) 3550.8688 umol/L
[2024-11-23 14:06] LABS: Alanine Aminotransferase 23 U/L (0-31); Albumin Level 3.9 g/dL (3.5-5.0); Anion Gap 9 (12-20); Aspartate Amino Transferase 29 U/L (5-31); Bilirubin Total 0.5 mg/dL (0.0-1.0); Blood Urea Nitrogen 12 mg/dL (9-16); Calcium 8.9 mg/dL (8.4-10.2); Carbon Dioxide 25 mmol/L (22-29); Chloride 109 mmol/L (96-108); Cholesterol 213 mg/dL (<200); Estimated Glomerular Filt Rate > 60; Glucose Random 88 mg/dL (60-115); HDL Cholesterol 46 mg/dL (>40); LDL Cholesterol Calculated 137 mg/dL (<100); Potassium 3.8 mmol/L (3.3-5.1); Sodium 139 mmol/L (135-145); Total Protein 7.4 g/dL (6.5-8.0); Triglycerides 154 mg/dL (<150)
[2024-11-23 14:25] LABS: TSH reflex Free T4 8.07 uIU/mL (0.32-4.0)
[2024-11-23 14:26] LABS: Alkaline Phosphatase 91 U/L (39-117)
[2024-11-23 15:01] LABS: CT PCR NOT DETECTED (Not Detect.); NG PCR NOT DETECTED (Not Detect.)
[2024-11-23 15:42] LABS: Reflex LDLD? No
[2024-11-24 08:01] LABS: Syphilis Screen Nonreactive (Nonreactive)
[2024-11-24 08:21] LABS: HBc Num1 0.07 S/CO (0.00-0.79); HBsAGNum1 0.27 S/CO (0.00-0.99); HIV AB/AG Nonreactive (Nonreactive); HIV Num 1 0.06 S/CO (0.00-0.99); Hepatitis B Core Antibody Nonreactive (Nonreactive); Hepatitis B Surface Antigen Negative (Negative); ~Hepatitis B Surface Antibody REACTIVE (Nonreactive); ~Hepatitis C Antibody Nonreactive (Nonreactive)
[2024-11-29 08:04] LABS: Hepatitis A Antibody IgG REACTIVE (Nonreactive); ~Hepatitis A Antibody IgG 7.63 S/CO (0.00-0.99)
== END 2024-11-23 11:44 | disposition home or self-care (01) ==
LOC: HO.HHCL 11:43
PROVIDERS: Visit Provider Family Medicine
DX: Z01.84 Encounter for antibody response examination (principal); I10 Essential (primary) hypertension; E06.3 Autoimmune thyroiditis; Z11.3 Encounter for screening for infections with a predominantly sexual mode of transmission; E78.5 Hyperlipidemia, unspecified; Z13.1 Encounter for screening for diabetes mellitus
CPT/HCPCS: 80053; 80061; 83036; 84439; 84443; 86704; 86706; 86708; 86780; 86803; 87340; 87389; 87491; 87591

== ENCOUNTER 2025-02-14 11:31 | Outpatient (REF) | payer MEDICAID, SELFPAY ==
--- OUTSIDE RECORDS SUMMARY | 2025-02-14 13:31 | XMS_ITS | Encounter Summary ---
Author Organization [employer] Address [address] [place] [address] Care Team Providers Care Passenger Coach Driver Name Role Phone Stephanie Hernandez MD Primary Care Provider [phone] Austin Crenshaw PharmD Unavailable [phone] Reason for Visit * Reason Onset Date Comments Med Refill 09/23/2023 Encounter Details Date Type Department Care Team (Late st Contact Info) Description 09/23/2023 Refill [facility]INE [address] [place], [place] [phone] Stephanie Hernandez MD [address] [place], [place] [phone] Social History Tobacco Use Types Packs/Day Years [...] as of this encounter Plan of Treatment Not on file documented as of this encounter Goals Goal Patient Goal Type Associated Problems Recent Progress Patient-Stated? Author Blood Pressure < 140/90 Blood Pressure 136/92( 025 11:29 AM EDT) No Austin Crenshaw, PharmD documented as of this encounter Visit Diagnoses Not on filedocumented in this encounter Additional Health Concerns Assessment Noted Time PHQ-9 Depression Total Score: 0 08/25/20 22 2:27 PM EST documented as of this encounter Care Teams Passenger Coach Driver Relationship Specialty Start Date End Date Stephanie Hernandez MD [address] [place] [address] PCP - General Family Medicine 08/30/18 Austin Crenshaw, PharmD [address] [place] [address] Pharmacist Internal Medicine 11/06/22 documented as of this encounter
[2025-02-14 14:08] LABS: TSH reflex Free T4 3.25 uIU/mL (0.32-4.0)
== END 2025-02-14 11:32 | disposition home or self-care (01) ==
LOC: HO.HHCL 11:31
PROVIDERS: PCP Family Medicine; Visit Provider Family Medicine
DX: E06.3 Autoimmune thyroiditis (principal)
CPT/HCPCS: 36415; 84443

== ENCOUNTER 2025-02-27 15:02 | Outpatient (AMB) | payer MEDICAID, SELFPAY ==
--- OUTSIDE RECORDS SUMMARY | 2024-11-30 10:30 | XMS_ITS | Continuity of Care Document ---
Author Organization [facility] Address [address] [place] [address] [address] [place] [phone] Phone Care Team Providers Care Face Cleaner Name Role Phone Deven KNIGHT, LISA, Narinder MOTA Unavailable U navailable Procedures Procedure Date Office/Oupt E&M New Pt 45 Mins- CT & [place] Duplex Scan-extrem Veins; Comp- CT & [place] Advance Directives Directive Yes / No Effective Date File Name No Information Encounters Encounter Description Practice Location Reason(s) For Visit Diagnoses Date Provider Providers Copied on Encounter Office/Oupt E&M New Pt 45 Mins- [place] & [place] [facility], [address] [place] [address] [address], [place], [id number], [place] tel:[phone] [facility] - [facility] Varicose veins of bilateral lower extremities with other complicationsPa in in right lower legPain in left lower legLocalized edemaRestless legs syndromeEssenti al (primary) hypertensionLym phedema, not elsewhere classifiedPruri tus, unspecifiedHere ditary lymphedemaCramp and spasm Apr-0 5 Deven KNIGHT, LISA, SVETLANA Barcenas. [address] [facility] [address], [place], [place], [id number] , [place]. tel:[phone] Referring Provider: Stephanie Hernandez MD, [address] [place], [address]. tel:[phone] [facility], [address] [place] [address] [address], [place], [id number], [place] tel:[phone] [facility] [place] [facility] Chronic venous hypertension (idiopathic) with other complications of bilateral lower extremity Deven KNIGHT, RVT, RPVI Narinder. [address] [facility], [address], [place], [place], [id number] , [place]. tel:[phone] Referring Provider: Stephanie Hernandez MD, [address] [place] [address], [address]. tel:[phone] Family History Family Member Type Diagnosis Age At Onset No Information Payers Payer name Insurance type Covered democrat ID Authoriza tion(s) Medical Assistance FORMERLY [facility], 1928–1983 [id number] Social History Type Description Quantity Date Captured Comments Alcohol Use Details Unknown Caffeine Use Details Unknown Tobacco Use Status Current non-smoker Smoking Status Never Smoker Non-Smoking Tobacco Use Details : No Details Available : No Details Available Sex Female Vital Signs Date / Time: Height Weight BMI Pulse Rate Blood Pressure Temperature Respiratory Rate Body Surface Area Head Circumference Head Circ. Percentile Wt./Benjie. Percentile BMI percentile Pulse Ox Inhaled Ox 83.910 kg (185.00 lbs) 33.8 7 kg/m eter (2) 142/88 mm[Hg] Chief Complaint And Reason For Visit No Information Reason For Referral Reason For Referral No Information Plan Of Treatment Date Type Action Status Goal Diet education completed Referral Ordered: Weight management: Referral to physician timeframe: 3 Months (related to Body mass index (BMI) 33.0-33.9, adult) ordered Appointment Kayla Perez Appointment Kayla Perez Appointment Kayla Perez Appointment Kayla Perez Appointment Kayla Perez Appointment Kayla Perez Appointment Kayla Perez Appointment Kayla Perez Appointment Kayla Perez Appointment Kayla Perez Appointment Kayla Perez Appointment Kayla Perez History Of Present Illness Encounter Date Complaint History Of Prese nt Illness No Information Functional Status Date Functional Assessmen t No Information Instructions Date Instruction Additional Infor mation Diet education Related to Body mass index (BMI) 33.0-33.9, adult Giving Encouragement to exercise Related to Body mass index (BMI) 33.0-33.9, adult Lifestyle education Related to B giorgi mass index (BMI) 33.0-33.9, adult Patient education booklet given Related to Varicose veins of bilateral lower extremities with other complications Pre and post instruc tions reviewed and provided Related to Varicose veins of bilateral lower extremities with other complications Assessments Type Assessment Date No Information Patient Care Teams Name Effective Dates (start - stop) Status Members No Information
--- NOTE | 2025-02-27 15:08 | MHC.OFFVIS ---
Vital Signs 02/27/25 15:12 Height 5 ft 2 in Weight 193 lb BMI 35.3 BP 128/78 Blood Pressure Location Lt brachial Position Sitting Pulse 85 Pulse Oximetry (%) 96 Oxygen Delivery Method Room Air Intake Visit Reasons: colo screening Intake Note: Patient new consult for 1st pre Colonoscopy screening. Patient cc: abdominal bloating, acid reflux with burning sensation, some swallowing discomfort. Denies any other GI issues. Board Finisher Required: Yes Board Finisher Name: Neena Vallejo [id number] Accompanied by: Self / Same As Patient Allergies Seasonal Allergies Allergy (Mild, Verified 02/27/25 15:07) Runny Nose Medication List - Last Reconciled 02/27/25 by Cherry Mayberry CNP albuterol sulfate 90 mcg/actuation (Ventolin HFA) 2 puffs inhalation Q4H PRN bisacodyl 5 mg PO ONCE 1 day chlorthalidone 25 mg PO DAILY ibuprofen 600 mg PO Q8H PRN levothyroxine 50 mcg PO DAILY montelukast 10 mg PO QPM polyethylene glycol 3350 (Miralax) 238 grams PO ONCE HPI HPI colo screening: Details: Patient is a Syriac-speaking 49-year-old female with PMH of asthma, hypothyroidism, hypertension, hyperlipidemia and obesity. Referred by PCP for pre colonoscopy screening. This will be her first colonoscopy. She reports a history of acid reflux. She describes her bowel movements as occurring every other day, sometimes twice a day. She denies loose stools, diarrhea, blood in stools, abdominal pain, nausea, or vomiting. Kayla reports experiencing heartburn but denies regurgitation or trouble swallowing. She occasionally takes an cuan-nom-tdivekc medication for acid reflux, which she finds helpful. She expresses dissatisfaction with her current weight of 193 pounds but has been unable to lose weight. Patient denies: fever/chills, appetite changes, dysphasia, unintentional wt loss or melena/hematochezia. Social hx: -denies ETOH use -denies recreational drug use -non-smoker - family hx as below -denies personal hx of CA -denies significant cardiopulmonary history -tolerated anesthesia in the past without difficulty. [facility] Medical History (Updated 02/27/25 @ 17:09 by Cherry Mayberry CNP) Obesity Constipation Acid reflux Colon cancer screening Asthma Thyroid disease Surgical History H/O LEEP Family History Mother Breast cancer Social History Alcohol intake: never Patient Tobacco Use Status: Never used Tobacco Female Reproductive History Menstrual Age of Menarche: 10 Review of Systems Const Reports as per HPI ENT Reports as per HPI Card Reports as per HPI Resp Reports as per HPI GI Reports as per HPI Reports as per HPI Physical Exam Vital Signs: Last Vital Signs Pulse 85 02/27/25 15:12 BP 128/78 02/27/25 15:12 Pulse Ox 96 02/27/25 15:12 Oxygen Delivery Method Room Air 02/27/25 15:12 BMI result Body Mass Index 35.3 Const General: healthy appearing, no acute distress and well developed Nutritional Appearance: well nourished Orientation/consciousness: patient oriented x3 HEENT Head: Yes normal to inspection, Yes normocephalic and Yes atraumatic Face and sinus: Yes normal facial exam Eyes General: appearance normal, both eyes and all related structures Neck Neck: Yes normal visual inspection Resp Effort & Inspection: normal respiratory effort, able to speak in complete sentences, no tracheal deviation and symmetric chest movement Auscultation: clear to auscultation bilaterally Cardio Jugular venous distension: no JVD Rate: regular rate Rhythm: regular rhythm Heart sounds: S1 normal heart sound present, S2 normal heart sound present, no gallops and no murmurs GI Inspection: Yes normal to inspection, No distended, Yes obesity and Yes striae Palpation (GI): Soft to palpation, not firm, nontender and No hepatosplenomegaly present Auscultation: normal bowel sounds Neuro General: patient oriented x3 Gait exam (Neuro): Normal gait present Psych Appearance: grossly normal Mental Status: mental status grossly normal Speech and movement: Normal speech and movement present Affect: normal affect Attitude: cooperative Thought process: Normal thought process present Thought content: Normal thought content present Insight: Good insight present (Psych) Judgement: Good judgement present (Psych) Assessment & Plan Assessment & Plan (1) Colon cancer screening: Code(s): Z12.11 - Encounter for screening for malignant neoplasm of colon Category: Medical Plan: Due for index screening colonoscopy, without alarm features. Medications: -prescriptions for laxative tablets and MiraLax sent to pharmacy; instructions for Gatorade purchase and clear liquid diet given. Patient educated on scheduling process, procedure preparation, including avoiding certain foods and ensuring clear liquid intake Advised on necessity for ride post-procedure due to sedation. (2) Acid reflux: Code(s): K21.9 - Gastro-esophageal reflux disease without esophagitis Category: Medical Qualifiers: Esophagitis presence: esophagitis presence not specified Qualified Code(s): K21.9 - Gastro-esophageal reflux disease without esophagitis Plan: Daily heartburn symptoms without regurgitation. -Schedule upper endoscopy in conjunction with colonoscopy for further evaluation of esophagus and stomach. - Start omeprazole 20 mg daily Encouraged to take omeprazole as prescribed, taken at least 30-60 minutes before a meal. Education on GERD prevention : -Advised against heavy meals; encouraged small, frequent meals instead of large ones. - Instructed to remain upright for 2?3 hours after eating. - Advised to avoid late-night meals, spicy foods, caffeine, alcohol, known dietary triggers, and tight-fitting clothing. - Emphasis placed on gradual implementation of lifestyle changes to improve adherence and symptom control. (3) Constipation: Code(s): K59.00 - Constipation, unspecified Category: Medical Qualifiers: Constipation type: unspecified constipation type Qualified Code(s): K59.00 - Constipation, unspecified Plan: Bowel movements every other day, occasionally twice daily. She is not keen on pharmacological management Reinforced lifestyle modifications to promote regularity: -higher fiber diet, examples provided -adequate hydration with water -150 minutes of moderate intensity exercise per week (4) Obesity: Code(s): E66.9 - Obesity, unspecified Category: Medical Qualifiers: Obesity type: due to excess calories Obesity classification: adult class 2 (BMI 35 - 39.9) Body mass index: BMI 35.0-35.9 Serious obesity comorbidity presence: without serious comorbidity Qualified Code(s): E66.812 - Obesity, class 2; E66.09 - Other obesity due to excess calories; Z68.35 - Body mass index [BMI] 35.0-35.9, adult Plan: Current weight 193 lbs, stable, patient expresses dissatisfaction. - Encourage dietary modifications and regular exercise as tolerated. (5) Thyroid disease: Code(s): E07.9 - Disorder of thyroid, unspecified Category: Medical Plan: Currently managed on levothyroxine 50 mcg. - Continue levothyroxine, managed by PCP Plan Follow up after endoscopy or sooner as needed Time: I spent a total of 45 minutes on the date of encounter which includes: Preparing to see the patient (reviewed previous documentation, test results and medical history) Performing a medically appropriate exam and/or evaluation Ordering medications, tests, and procedures Documenting clinical information in the health record Medications: New bisacodyl Take four tablets once for 1 day per colonoscopy instructions 5 mg PO ONCE 4 tabs 0RF 1 day polyethylene glycol 3350 (Miralax) per colonoscopy prep instructions 238 grams PO ONCE 238 grams 0RF omeprazole 20 mg PO DAILY 90 caps 1RF Coding Level of Care Code New Pt New Pt Level 4 (63937) Patient Type New Diagnoses Colon cancer screening Z12.11 Gastroesophageal reflux disease, unspecified whether esophagitis present K21.9 Esophagitis presence: esophagitis presence not specified Constipation, unspecified constipation type K59.00 Constipation type: unspecified constipation type Class 2 obesity due to excess calories without serious comorbidity with body mass index (BMI) of 35.0 to 35.9 in adult E66.812; E66.09; Z68.35 Obesity type: due to excess calories Obesity classification: adult class 2 (BMI 35 - 39.9) Body mass index: BMI 35.0-35.9 Serious obesity comorbidity presence: without serious comorbidity Thyroid disease E07.9
[2025-02-27 15:12] VITALS: BP 128/78; PULSE 85; O2SAT 96; BMI 35.3
--- OUTSIDE RECORDS SUMMARY | 2025-02-27 15:58 | XMS_ITS | Encounter Summary ---
Author Organization [employer] Address [address] [place] [address] Care Team Providers Care Knitting Supervisor Name Role Phone Stephanie Hernandez MD Primary Care Provider [phone] Austin Crenshaw PharmD Unavailable [phone] Reason for Visit * Reason Onset Date Comments Med Refill 09/23/2023 Encounter Details Date Type Department Care Team (Late st Contact Info) Description 09/23/2023 Refill [facility] [address] [place], [place] [phone] Stephanie Hernandez MD [address] [place], [place] [phone] Social History Tobacco Use Types Packs/Day Years [...] documented as of this encounter Care Teams Knitting Supervisor Relationship Specialty Start Date End Date Stephanie Hernandez MD [address] [place] [address] PCP - General Family Medicine 08/30/18 Austin Crenshaw, PharmD [address] [place] [address] Pharmacist Internal Medicine 11/06/22 documented as of this encounter
== END 2025-02-27 15:49 | disposition home or self-care (01) ==
LOC: HO.HGI 15:02
PROVIDERS: PCP Family Medicine; Visit Provider Nurse Practitioner Family
DX: K21.9 Gastro-esophageal reflux disease without esophagitis (principal); K59.00 Constipation, unspecified; E66.812 Obesity, class 2; E66.09 Other obesity due to excess calories; Z68.35 Body mass index [BMI] 35.0-35.9, adult; E07.9 Disorder of thyroid, unspecified
CPT/HCPCS: 99204

== ENCOUNTER → 2025-02-27 15:02 | Outpatient (BNVA) | payer MEDICAID, SELFPAY | PROVIDERS: PCP Family Medicine; Visit Provider Nurse Practitioner Family | DX: Z12.11 Encounter for screening for malignant neoplasm of colon (principal); K21.9 Gastro-esophageal reflux disease without esophagitis; K59.00 Constipation, unspecified; E66.812 Obesity, class 2 | CPT/HCPCS: 99212 ==